=== PATIENT | female | born 1995 ===

== ENCOUNTER 2022-09-12 12:47 | Outpatient (CLI) | payer OTHER | END 2022-09-12 13:41 | disposition home or self-care (01) | LOC: PRENATAL 12:47 | PROVIDERS: ATTEND Obstetrics & Gynecology Maternal & Fetal Medicine | DX: Z76.1 Encounter for health supervision and care of foundling (principal) ==

== ENCOUNTER 2022-09-27 11:03 | Outpatient (CLI) | payer OTHER | END 2022-09-27 17:10 | disposition home or self-care (01) | LOC: PRENATAL 11:03 | PROVIDERS: ATTEND Obstetrics & Gynecology Maternal & Fetal Medicine | DX: O35.9XX0 Maternal care for (suspected) fetal abnormality and damage, unspecified, not applicable or unspecified (principal); O35.3XX0 Maternal care for (suspected) damage to fetus from viral disease in mother, not applicable or unspecified; O99.210 Obesity complicating pregnancy, unspecified trimester; Z3A.20 20 weeks gestation of pregnancy ==

== ENCOUNTER 2022-11-19 13:48 | Outpatient (CLI) | payer OTHER | END 2022-11-19 16:25 | disposition home or self-care (01) | LOC: PRENATAL 13:48 | PROVIDERS: ATTEND Obstetrics & Gynecology Maternal & Fetal Medicine | DX: O35.9XX0 Maternal care for (suspected) fetal abnormality and damage, unspecified, not applicable or unspecified (principal); O26.849 Uterine size-date discrepancy, unspecified trimester; O99.210 Obesity complicating pregnancy, unspecified trimester; Z3A.29 29 weeks gestation of pregnancy ==